=== PATIENT | female | born 1975 | race Caucasian/White ===

== ENCOUNTER → 2020-07-15 09:05 | Outpatient (CLI) | payer OTHER, SELFPAY ==
--- NOTE | ~2020-07-15 | MM_ITS ---
EXAMINATION: MM screening joyce BI w miguel HISTORY: Screening TECHNIQUE: Craniocaudal and mediolateral oblique 3-D tomosynthesis images were obtained and synthetic 2-D images were generated. CAD analysis was submitted and interpreted. COMPARISON: Comparison to multiple prior studies sequentially, with oldest reviewed study dated 11/14. BREAST PARENCHYMAL COMPOSITION: The breasts are heterogenously dense, which may obscure small masses. FINDINGS: Stable bilateral subareolar asymmetries, consistent with cysts identified on prior ultrasou nd. There is no evidence of suspicious mass, calcification, or architectural distortion to suggest ma lignancy in either breast. There has been no suspicious interval change. IMPRESSION: 1. No mammographic evidence of malignancy. 2. Recommend routine screening mammography in one year. BI-RADS Category 2: Benign finding(s). Reviewed, dictated and finalized at location A.
== END ==
PROVIDERS: Visit Provider Physician Assistant
DX: Z12.31 Encounter for screening mammogram for malignant neoplasm of breast (principal)
CPT/HCPCS: 77063; 77067

== ENCOUNTER → 2020-11-05 02:14 | Outpatient (CLI) | payer OTHER, SELFPAY ==
[2020-11-05 19:56] LABS: SARS-CoV-2 RNA PCR Negative
== END ==
PROVIDERS: Visit Provider Internal Medicine Gastroenterology
DX: Z01.812 Encounter for preprocedural laboratory examination (principal); Z20.822 Contact with and (suspected) exposure to COVID-19
CPT/HCPCS: C9803; U0003; U0005

== ENCOUNTER 2020-11-09 02:47 | Day surgery (SDC) | payer OTHER, SELFPAY ==
[2020-10-31 11:08] VITALS: BMI 32.9
[2020-11-09 10:57] VITALS: BP 125/87; PULSE 81; RESP 16; TEMP 36.7; O2SAT 100
--- NOTE | 2020-11-09 11:10 | WPDANESEPPF ---
Anes - Initial Pre Proc Eval Procedure: Operation Date: 11/09/20 11:45 Proposed Procedures p Esophagogastroduodenoscopy - Fareed Toussaint MD Date/Time: 11/09/20 11:10 Surgeon: Fareed Toussaint MD Pre Op Diagnosis: iron def, anemia, GERD Patient Data Age: 45 Gender: F Height: 5 ft 1 in Weight: 98.8 kg Last Vital Signs Temp 98.1 F 11/09/20 10:57 Pulse 81 11/09/20 10:57 Resp 16 11/09/20 10:57 BP 125/87 11/09/20 10:57 Pulse Ox 100 11/09/20 10:57 Allergies Allergy/AdvReac Type Severity Reaction Status Date / Time No Known Allergies Allergy Mild Verified 11/09/20 10:56 Home Medications Medication Instructions Recorded Confirmed Type bupropion HCl 150 mg 24 hr tablet, 450 mg PO QAM 10/05/20 11/09/20 History extended release hydrochlorothiazide 12.5 mg capsule 12.5 mg PO DAILY 10/05/20 11/09/20 History omeprazole 40 mg capsule,delayed 40 mg PO BID 10/05/20 11/09/20 History release cholecalciferol (vitamin D3) 50 mcg PO DAILY 10/31/20 11/09/20 History [Vitamin D3] ferrous sulfate 325 mg PO BID 10/31/20 11/09/20 History Patient hx anesthesia problems: none Family hx anesthesia problems: none [facility] Past Medical History Medical History (Updated 11/09/20 @ 11:09 by Kory Goldman MD) GERD (gastroesophageal reflux disease) Hypertension NOEMY (iron deficiency anemia) Social History Social History (Updated 10/05/20 @ 08:21 by Mary Anderson CMA) Smoking status: Never smoker Alcohol intake: current Substance use: never Substance use type: does not use Spiritual care concerns: No Anes - Eval Final PreProcedure Day of Procedure 11/09/20 11:10 Patient weight: morbidly obese Heart: regular rate and rhythm Lungs: clear to auscultation Airway: Mallampati scale class II Neurological: alert and oriented Last oral intake: >/= 8 hours ASA classification: III Emergent: no Anesthetic plan: proceed Anesthesia type and monitoring: general GIVS and standard monitoring Informed Consent: The patient's anesthetic plan and its attendant risks and benefits were discussed with the patient/family/POA. Questions were solicited and answers provided to the satisfaction of the patient/family/POA.
--- NOTE | 2020-11-09 11:16 | WPDHPUPDATE1 ---
History and Physical Update Update Date/Time: 11/09/20 11:16 History and Physical has been reviewed, including an updated exam of the patient. There are NO changes in the patient's condition. Risks, benefits, and alternatives have been discussed and questions answered. Patient agrees to proceed with procedure.
[2020-11-09] MEDS: LACTATED RINGERS 1,000 ML 150 ML IV CONT (11:22)
[2020-11-09] MEDS: BENZOCAINE (*SP) 60 ML SPRAY CAN (HURRICAINE) 1 SPRAY MUCOUS MEM (12:07)
[2020-11-09 12:17] VITALS: BP 130/73; PULSE 84; RESP 18; O2SAT 99
[2020-11-09 12:27] VITALS: BP 108/68; PULSE 83; RESP 20; O2SAT 100
[2020-11-09 12:37] VITALS: BP 117/82; PULSE 74; RESP 19; O2SAT 100
== END 2020-11-09 13:01 | disposition home or self-care (01) ==
PROVIDERS: PCP Nurse Practitioner Family; Visit Provider Internal Medicine Gastroenterology
PROC: 0DJ08ZZ Inspection of Upper Intestinal Tract, Via Natural or Artificial Opening Endoscopic (ICD-10-PCS; CPT 43235; principal; 2020-11-09 11:45)
DX: R10.13 Epigastric pain (principal); D64.9 Anemia, unspecified; K21.9 Gastro-esophageal reflux disease without esophagitis; I10 Essential (primary) hypertension
CPT/HCPCS: 43235; 87081; C9803; J2704; J7120; U0003; U0005

== ENCOUNTER → 2020-11-26 01:06 | Outpatient (CLI) | payer OTHER, SELFPAY ==
[2020-11-26 17:56] LABS: SARS-CoV-2 RNA PCR Negative
== END ==
PROVIDERS: PCP Nurse Practitioner Family; Visit Provider Internal Medicine Gastroenterology
DX: Z01.812 Encounter for preprocedural laboratory examination (principal); Z20.822 Contact with and (suspected) exposure to COVID-19
CPT/HCPCS: C9803; U0003; U0005

== ENCOUNTER 2020-11-30 01:12 | Day surgery (SDC) | payer OTHER, SELFPAY ==
[2020-11-17 15:27] VITALS: BMI 33.3
--- NOTE | 2020-11-29 13:27 | WPDANESEPPF ---
Anes - Initial Pre Proc Eval Procedure: Operation Date: 11/30/20 10:00 Proposed Procedures p Colonoscopy - Fareed Toussaint MD Date/Time: 11/29/20 13:27 Surgeon: Fareed Toussaint MD Pre Op Diagnosis: iron def, anemia Patient Data Age: 45 Gender: F Height: 1.55 m Weight: 80 kg Allergies Allergy/AdvReac Type Severity Reaction Status Date / Time No Known Allergies Allergy Mild Verified 11/17/20 15:28 Home Medications Medication Instructions Recorded Confirmed Type bupropion HCl 150 mg 24 hr tablet, 450 mg PO QAM 10/05/20 11/17/20 History extended release hydrochlorothiazide 12.5 mg capsule 12.5 mg PO DAILY 10/05/20 11/17/20 History omeprazole 40 mg capsule,delayed 40 mg PO BID 10/05/20 11/17/20 History release cholecalciferol (vitamin D3) 50 mcg PO DAILY 10/31/20 11/17/20 History [Vitamin D3] ferrous sulfate 325 mg PO BID 10/31/20 11/17/20 History Patient hx anesthesia problems: none Family hx anesthesia problems: none PENDING SALE TO [facility] Past Medical History Medical History (Updated 11/09/20 @ 11:09 by Kory Goldman MD) GERD (gastroesophageal reflux disease) Hypertension NOEMY (iron deficiency anemia) Surgical History Surgical History (Updated 11/29/20 @ 13:28 by Bennie Campos DO) History of tubal ligation Social History Social History (Updated 10/05/20 @ 08:21 by Mary Anderson CMA) Smoking status: Never smoker Alcohol intake: current Alcohol use details: 2X YEARLY Substance use: never Substance use type: does not use Living arrangements: with family Spiritual care concerns: No Anes - Eval Final PreProcedure Day of Procedure 11/29/20 13:27 Patient weight: obese Heart: regular rate and rhythm Lungs: clear to auscultation and normal air movement Airway: Mallampati scale class II Neurological: alert and oriented Last oral intake: >/= 8 hours ASA classification: III Emergent: no Anesthetic plan: proceed Anesthesia type and monitoring: general GIVS and standard monitoring Informed Consent: The patient's anesthetic plan and its attendant risks and benefits were discussed with the patient/family/POA. Questions were solicited and answers provided to the satisfaction of the patient/family/POA.
[2020-11-30 08:55] VITALS: BP 128/82; PULSE 81; RESP 18; TEMP 36.4; O2SAT 100; BMI 32.8
[2020-11-30] MEDS: LACTATED RINGERS 1,000 ML 150 ML IV CONT (09:07)
--- NOTE | 2020-11-30 09:38 | WPDGICN ---
Assessment and Plan Assessment and plan (1) NOEMY (iron deficiency anemia): Code(s): D50.9 - Iron deficiency anemia, unspecified Status: Acute Assessment and Plan: because of iron deficiency anemia colonoscopy will be performed to assess for potential lower GI source of blood loss. No obvious bleeding has been described however (2) GERD (gastroesophageal reflux disease): Code(s): K21.9 - Gastro-esophageal reflux disease without esophagitis Status: Acute Assessment and Plan: GE reflux disease appears stable on PPI therapy period is possible PPI therapy may contribute to iron deficiency. With iron malabsorption. Iron replacement suggested GI Consult Note Consult date/time: 11/30/20 09:38 HPI: Codie Rueda is a 45 year old female Presents for colonoscopy. Patient has been found to have anemia. Iron deficient indices described. Patient denies any obvious signs of GI blood loss. Her stools have remained normal. Recent EGD was unremarkable. Patient denies any abdominal pain appetite is normal and tolerated well. Plan at this point is for colonoscopy to assess more thoroughly. Patient has a stable history of acid reflux controlled with proton pump inhibitor therapy Review of Systems Review of Systems: All systems reviewed & are unremarkable except as noted in HPI and below PMFSH Past Medical History Medical History (Updated 11/30/20 @ 09:39 by Fareed Toussaint MD) GERD (gastroesophageal reflux disease) Hypertension NOEMY (iron deficiency anemia) Surgical History Surgical History (Updated 11/29/20 @ 13:28 by Bennie Campos DO) History of tubal ligation Social History Social History (Updated 10/05/20 @ 08:21 by Mary Anderson CMA) Smoking status: Never smoker Alcohol intake: current Alcohol use details: 2X YEARLY Substance use: never Substance use type: does not use Living arrangements: with family Spiritual care concerns: No Meds Home Medications and Allergies Home Medications Medication Instructions Recorded Confirmed Type bupropion HCl 150 mg 24 hr tablet, 450 mg PO QAM 10/05/20 11/17/20 History extended release hydrochlorothiazide 12.5 mg capsule 12.5 mg PO DAILY 10/05/20 11/17/20 History omeprazole 40 mg capsule,delayed 40 mg PO BID 10/05/20 11/17/20 History release cholecalciferol (vitamin D3) 50 mcg PO DAILY 10/31/20 11/17/20 History [Vitamin D3] ferrous sulfate 325 mg PO BID 10/31/20 11/17/20 History Allergies Allergy/AdvReac Type Severity Reaction Status Date / Time No Known Allergies Allergy Mild Verified 11/17/20 15:28 Vital Signs Vital Signs - 24 hr 11/30/20 08:55 Temperature 97.5 F L Pulse Rate 81 Respiratory Rate 18 Blood Pressure 128/82 Pulse Oximetry 100 Exam Narrative: Exam Narrative: Physical exam reveals patient be alert. Vital signs stable. HEENT exam is unremarkable. Patient is anicteric. Lungs are clear to auscultation and to percussion. Heart is without murmur or extra sounds. Abdominal exam bowel sounds present soft nontender with no organomegaly. Digital external rectal exam is normal.
[2020-11-30 10:35] VITALS: BP 114/75; PULSE 88; RESP 18; O2SAT 100
[2020-11-30 10:45] VITALS: BP 124/68; PULSE 78; RESP 16; O2SAT 100
[2020-11-30 10:55] VITALS: BP 135/68; PULSE 78; RESP 16; O2SAT 100
== END 2020-11-30 11:12 | disposition home or self-care (01) ==
PROVIDERS: PCP Nurse Practitioner Family; Visit Provider Internal Medicine Gastroenterology
PROC: 0DJD8ZZ Inspection of Lower Intestinal Tract, Via Natural or Artificial Opening Endoscopic (ICD-10-PCS; CPT 45378; principal; 2020-11-30 10:00)
DX: D50.9 Iron deficiency anemia, unspecified (principal); K64.8 Other hemorrhoids; K21.9 Gastro-esophageal reflux disease without esophagitis; I10 Essential (primary) hypertension; E66.9 Obesity, unspecified; Z68.32 Body mass index [BMI] 32.0-32.9, adult
CPT/HCPCS: 45378; C9803; J2704; J7120; U0003; U0005

== ENCOUNTER → 2022-06-01 13:27 | Outpatient (CLI) | payer OTHER, SELFPAY ==
--- NOTE | ~2022-06-01 | MM_ITS ---
EXAMINATION: MM screening joyce BI w miguel HISTORY: Screening TECHNIQUE: Craniocaudal and mediolateral oblique 3-D tomosynthesis images were obtained and synthetic 2-D images were generated. CAD analysis was submitted and interpreted. COMPARISON: 11/14/2016 BREAST PARENCHYMAL COMPOSITION: The breasts are heterogeneously dense, which may obscure small masses . FINDINGS: There is no evidence of suspicious mass, calcification, or architectural distortion to sugg est malignancy in either breast. There has been no suspicious interval change. IMPRESSION: 1. No mammographic evidence of malignancy. 2. Recommend routine screening mammography in one year. BI-RADS Category 1: Negative Reviewed, dictated and finalized at location B. [employer]
== END ==
PROVIDERS: PCP Pediatrics; Visit Provider Physician Assistant
DX: Z12.31 Encounter for screening mammogram for malignant neoplasm of breast (principal)
CPT/HCPCS: 77063; 77067

== ENCOUNTER 2023-11-07 11:22 | Outpatient (CLI) | payer OTHER, SELFPAY ==
--- NOTE | ~2023-11-07 | MM_ITS ---
EXAMINATION: MM screening joyce BI w miguel HISTORY: Screening TECHNIQUE: Craniocaudal and mediolateral oblique 3-D tomosynthesis images were obtained and synthetic 2-D images were generated. CAD analysis was submitted and interpreted. COMPARISON: Comparison to multiple prior studies sequentially, with oldest reviewed study dated 11/27. BREAST PARENCHYMAL COMPOSITION: Dense: The breasts are heterogeneously dense, which may obscure small masses FINDINGS: There is no evidence of suspicious mass, calcification, or architectural distortion to sugg est malignancy in either breast. There has been no suspicious interval change. IMPRESSION: 1. No mammographic evidence of malignancy. 2. Recommend routine screening mammography in one year. BI-RADS Category 1: Negative Reviewed, dictated and finalized at location A.
== END 2023-11-07 11:23 ==
LOC: MICIMG 11:23
PROVIDERS: PCP Nurse Practitioner Family; Visit Provider Nurse Practitioner Family
DX: Z12.31 Encounter for screening mammogram for malignant neoplasm of breast (principal)
CPT/HCPCS: 77063; 77067